=== PATIENT | female | born 1960 | race Caucasian/White ===

== ENCOUNTER 2024-10-28 07:34 | Emergency (ER) | payer MEDICARE, SELFPAY ==
[2024-10-28 07:36] VITALS: BP 156/81
[2024-10-28 07:59] LABS: % Basophils 0.3 % (0-2); % Eosinophils 0.8 % (0-6); % Immature Granulocytes 0.2 % (0-0.5); % Lymphocytes 17.8 % (20.5-51.1); % Monocytes 10.4 % (1.7-9.3); % Neutrophils 70.5 % (42.2-75.2); Absolute Eosinophils 0.1 10^3/uL (0-0.7); Absolute Lymphocytes 1.5 10^3/uL (1.2-3.4); Absolute Monocytes 0.9 10^3/uL (0.1-0.6); Absolute Neutrophils 6.1 10^3/uL (1.4-6.5); Hematocrit 39.1 % (37.0-47.0); Hemoglobin 12.6 g/dL (12.0-16.0); Mean Corp Hgb Conc. 32.2 g/dL (33.0-37.0); Mean Corpuscular Hgb 26.5 pg (27.0-31.0); Mean Corpuscular Volume 82.1 fL (81.0-99.0); Mean Platelet Volume 9.5 fL (7.4-10.4); Nucleated Red Blood Cells % 0 %; Platelet Count 273 10^3/uL (130-400); Red Blood Cell Count 4.76 10^6/uL (4.20-5.40); Red Cell Dist. Width 16.1 % (11.5-14.5); White Blood Cell Count 8.6 10^3/uL (4.8-10.8)
[2024-10-28 08:12] LABS: ALT (SGPT) 23 U/L (0-35); AST (SGOT) 21 U/L (14-36); Albumin 4.7 g/dl (3.5-5.0); Alkaline Phosphatase 76 U/L (38-126); Blood Urea Nitrogen 11 mg/dl (7-17); Calcium 9.6 mg/dl (8.4-10.2); Carbon Dioxide 26 mmol/L (22-30); Chloride 99 mmol/L (98-107); Glucose 174 mg/dl (70-99); Potassium 4.3 mmol/L (3.5-5.1); Sodium 138 mmol/L (135-145); Total Bilirubin 0.5 mg/dl (0.2-1.3); Total Protein 7.2 g/dl (6.3-8.2); eGFR > 60.00
[2024-10-28 08:16] LABS: COVID-19 Antigen Negative (Negative)
[2024-10-28 08:59] VITALS: BP 125/73
[2024-10-28 09:02] VITALS: BMI 29.5
--- NOTE | 2024-10-28 10:07 | ED.GENMED ---
History of Present Illness
General
Chief Complaint: Cold/Flu/URI Symptoms
Source: patient and spouse
Exam Limitations: none
Time Seen by Provider: 10/28/24 09:02
Nursing documentation reviewed up to this point in time: agreed with
History of Present Illness
History of Present Illness:
64 yo female w h/o NIDDM, HLD, neuropathy feet, UTIs, Hypothyroid, GERD, atypical PNA this time last year. Presents for 'bad cough.' Cough started a week ago, 2 days ago 'it moved down to my lungs,' cough became much worse yesterday. Lockhart wheezing
in right lung today and took her Albuterol inhaler and Flovent with relief. Denies fever, denies n/v/d/c. Appetite good. Feels fatigued.
Frequent UTI's, had Fosfomycin 10/14, developed yeast infection and is taking Nystatin and Fluconazole 1 q 3 days x 3 doses starting 2 days ago.
Past History
Past History
ED Past Medical History: Asthma, GERD, Hypercholesterolemia, NIDDM and Hypothyroidism
Review of Systems
Review of Systems
Allergies reviewed?: Yes
All Other Systems: ROS reviewed and negative except as documented in HPI and ROS
Constitutional: Denies fever or chills
EENT: Denies sore throat
Respiratory: Reports cough
Cardiac: Reports chest pain and diaphoresis; Denies palpitations
ABD/GI: Denies abdominal pain, nausea, vomiting or diarrhea
: Denies dysuria, frequency, difficulty voiding or urgency
Musculoskeletal: Reports no symptoms
Skin: Reports no symptoms
Neurological: Reports no symptoms
Phy Exam
Physical Exam
Physical Exam:
GENERAL: No acute distress. A&Ox3.
CONSTITUTIONAL: Afebrile.
EYES: clear, conjunctivae normal
ENMT: moist mucus membranes, Pharynx nl, TMs normal
RESPIRATORY: Regular respirations, nonlabored, lungs clear.
CARDIOVASCULAR: Regular rate and rhythm, no murmurs, no rubs.
GI: Soft, nontender
MUSCULOSKELETAL: Moves with ease. Well perfused.
SKIN: Warm, dry, pink
PSYCH: Normal mood and affect. Well kept, interactive and appropriate
NEUROLOGIC: Awake, alert and oriented. No focal neurological deficits
Course
Orders/Labs/Results
Orders:
Orders
10/28/24 07:40
Chest [CR Chest - 2 Views ] Urgent
Comment:
Reason For Exam: SOB, cough, wheezing
10/28/24 07:48
COVID-19 Antigen Urgent
Source: Nasal Swab
Complete Blood Count/With Diff Urgent
Comprehensive Metabolic Panel Urgent
Influenza A+B Rapid Molecular Urgent
JORDANA Source: Nasal Swab
Specimen Description:
Abnormal Lab Results
10/28/24
07:48
MCH 26.5 L pg
(27.0-31.0)
MCHC 32.2 L g/dL
(33.0-37.0)
RDW 16.1 H %
(11.5-14.5)
Absolute Monos (auto) 0.9 H 10^3/uL
(0.1-0.6)
Lymphocytes % 17.8 L %
(20.5-51.1)
Monocytes % 10.4 H %
(1.7-9.3)
Glucose 174 H mg/dl
(70-99)
10/28/24 07:48
10/28/24 07:48
Vital Signs
Initial and Last Documented VS:
Initial Vital Signs
Temp Pulse Resp BP Pulse Ox
99.2 F 122 18 156/81 97
10/28/24 07:36 10/28/24 07:36 10/28/24 07:36 10/28/24 07:36 10/28/24 07:36
Last Documented Vital Signs
Temp Pulse Resp BP Pulse Ox
99.2 F 93 23 115/75 91
10/28/24 07:36 10/28/24 11:15 10/28/24 11:15 10/28/24 11:00 10/28/24 11:15
MDM/Problems Addressed
MDM/Problems Addressed:
64 yo female w h/o NIDDM, HLD, neuropathy feet, UTIs, Hypothyroid, GERD, atypical PNA this time last year. Presents for 'bad cough.' Cough started a week ago, 2 days ago 'it moved down to my lungs,' cough became much worse yesterday. Lockhart wheezing
in right lung today and took her Albuterol inhaler and Flovent with relief. Denies fever, denies n/v/d/c. Appetite good. Feels fatigued.
Frequent UTI's, had Fosfomycin 10/14, developed yeast infection and is taking Nystatin and Fluconazole 1 q 3 days x 3 doses starting 2 days ago.
Temp 99.2, NAD
Lungs CTA
CBC, CMP unremarkable.
Covid neg
Flu negative
CXR: NAD
I will treat for atypical pneumonia with doxycycline
Pt stable for discharge
*Critical Care Note
Total Time (30-74mins, 75-104mins- exclusive of procedures): Not Applicable
ED Attending Note
-
Portions of this chart may have been created with voice recognition software.� Occasional wrong word or��sound alike� substitutions may have occurred due to the inherent limitations of voice recognition software.
Discharge Plan
Departure
Patient Disposition: Home (Routine Discharge)
Date of Disposition: 10/28/24
Time of Disposition: 11:01
Patient with high blood pressure during this ER visit?: No
Condition: Good
Covid-19: Negative COVID-19
Discharge Problem:
Atypical pneumonia
Instructions: Bronchitis in adults - ED discharge instructions, Pneumonia
Prescriptions:
New
doxycycline hyclate 100 mg tablet
100 mg PO BID Qty: 20 0RF
benzonatate 100 mg capsule
100 mg PO Q4H PRN (Reason: Cough) Qty: 14 0RF
No Action
metformin 500 mg Tablet
1,000 mg PO BID@0800,1700
dextromethorphan-guaifenesin 10-100 mg/5 mL Liquid
10 ml PO Q4H PRN (Reason: cough)
folic acid 400 mcg Tablet
0.4 mg PO MOWEFR
acetaminophen [Tylenol Extra Strength] 500 mg Tablet
500 mg PO BIDPRN PRN (Reason: mild pain)
famotidine [Pepcid] 20 mg Tablet
20 mg PO HS
ascorbic acid (vitamin C) [Vitamin C] 500 mg Tablet
500 mg PO DAILY
losartan 25 mg Tablet
25 mg PO HS
ibuprofen 400 mg Tablet
400 mg PO BIDPRN PRN (Reason: mild pain)
magnesium 250 mg Tablet
250 mg PO DAILY
gabapentin 100 mg Capsule
100 mg PO HS
fluticasone propionate 50 mcg/actuation [place],Suspension
2 spray INTRANASAL DAILY
levothyroxine 112 mcg Tablet
112 mcg PO DAILY AT 0700
rosuvastatin 20 mg Tablet
20 mg PO HS
Align (B.infantis) 4 mg Capsule
4 mg PO DAILY
dexlansoprazole 60 mg Capsule,Biphase Delayed Releas
60 mg PO DAILY
cholecalciferol (vitamin D3) 125 mcg (5,000 unit) Tablet
125 mcg PO DAILY
estradiol [Yuvafem] 10 mcg Tablet
10 mcg VAGINAL MOWEFR
L.acid-L.rham-B.breve-S.therm 3 billion cell Tablet,Chewable
3 tab PO .SEE BELOW
Patient Comments:
10/04/2023, patient states that they take this medication 'whenever I remember to'.
albuterol sulfate 0.63 mg/3 mL Solution For Nebulization
0.63 mg INHALATION R Q3
methocarbamol 750 mg Tablet
750 mg PO DAILYPRN PRN (Reason: muscle pain)
benzonatate 100 mg Capsule
100 mg PO QID
pseudoephedrine HCl [Sudafed] 30 mg Tablet
30 mg PO TIDPRN PRN (Reason: sinus congestion)
doxycycline hyclate 100 mg Capsule
100 mg PO Q12@1000,2200 2 Days Qty: 4 0RF
cefdinir 300 mg capsule
300 mg PO Q12H Qty: 4 0RF
prednisone 10 mg Tablet
See Rx Instructions .ROUTE .COMPLEX Qty: 30 0RF
Rx Instructions:
Take By Mouth:
40 mg daily x3 days, 30 mg daily x3 days,
20 mg daily x3 days, 10 mg daily x3 days.
budesonide-formoterol [Breyna] 160-4.5 mcg/actuation HFA aerosol inhaler
2 puff inhalation BID Qty: 10.2 0RF
Referrals:
Cynthia Corbin CRNP [Family Provider] -
Activity Restrictions/Additional Instructions:
As we discussed, your symptoms are most consistent with either an atypical pneumonia or bronchitis. Either way they can both be treated with doxycycline. I sent a prescription for doxycycline and Tessalon Perles for your cough to your pharmacy,
pick them up and start today.
See your doctor in 1 week if not much improved by then.
Interventions
Interventions:
*Risk Screen - Suicide Last Done: 10/28/24 07:36
*General Assessment Last Done: 10/28/24 07:36
*Neglect/Abuse Screening Last Done: 10/28/24 07:36
*ED COVID-19 Vaccine History Last Done: 10/28/24 07:36
*Nursing Disposition Last Done: 10/28/24 11:34
ED- Pulmonary Assessment Last Done: 10/28/24 08:59
Discharge Date and Time
Discharge Date/Time: 10/28/24 12:03
Print Language: YAKUT
[2024-10-28 10:10] VITALS: BP 124/85
[2024-10-28 11:00] VITALS: BP 115/75
== END 2024-10-28 12:03 | disposition home or self-care (01) ==
LOC: EMR 07:34
PROVIDERS: Emergency Medicine; EMERGENCY PHYSICIAN Emergency Medicine; FAMILY PHYSICIAN Registered Nurse
DX: J18.9 Pneumonia, unspecified organism (principal); E11.9 Type 2 diabetes mellitus without complications; E78.00 Pure hypercholesterolemia, unspecified; E03.9 Hypothyroidism, unspecified; J45.909 Unspecified asthma, uncomplicated; K21.9 Gastro-esophageal reflux disease without esophagitis; Z87.440 Personal history of urinary (tract) infections
CPT/HCPCS: 99283; 71046; 80053; 85025; 87502; 87811

== ENCOUNTER 2024-12-05 06:34 | Day surgery (SDC) | payer MEDICARE, SELFPAY ==
[2024-12-05 07:53] LABS: Glucose - Point of Care 148 mg/dl (70-99)
== END 2024-12-05 09:54 | disposition home or self-care (01) ==
LOC: GI 06:34
PROVIDERS: ATTENDING PHYSICIAN Student in an Organized Health Care Education/Training Program
DX: K29.50 Unspecified chronic gastritis without bleeding (principal); K31.7 Polyp of stomach and duodenum; K21.9 Gastro-esophageal reflux disease without esophagitis; R13.14 Dysphagia, pharyngoesophageal phase
CPT/HCPCS: 43251; 88305; 82962; 88342

== ENCOUNTER → 2024-12-18 13:58 | Outpatient (REF) | payer MEDICARE, SELFPAY | LOC: HWRAD 13:58 | PROVIDERS: ATTENDING PHYSICIAN Internal Medicine Critical Care Medicine; FAMILY PHYSICIAN Registered Nurse | DX: R91.8 Other nonspecific abnormal finding of lung field (principal) | CPT/HCPCS: 71250 ==

== ENCOUNTER 2025-07-16 06:23 | Day surgery (SDC) | payer MEDICARE, SELFPAY ==
[2025-07-16 07:24] LABS: Glucose - Point of Care 114 mg/dl (70-99)
== END 2025-07-16 09:03 | disposition home or self-care (01) ==
LOC: GI 06:23
PROVIDERS: ATTENDING PHYSICIAN Student in an Organized Health Care Education/Training Program; FAMILY PHYSICIAN Registered Nurse
DX: Z12.11 Encounter for screening for malignant neoplasm of colon (principal); K57.30 Diverticulosis of large intestine without perforation or abscess without bleeding; K62.89 Other specified diseases of anus and rectum; K63.89 Other specified diseases of intestine; D12.3 Benign neoplasm of transverse colon; K63.5 Polyp of colon; D12.0 Benign neoplasm of cecum; Z86.0100 Personal history of colon polyps, unspecified
CPT/HCPCS: 45385; 45380; 82962; 88305

== ENCOUNTER 2025-09-03 06:07 | Day surgery (SDC) | payer MEDICARE, SELFPAY ==
[2025-09-03 07:45] VITALS: BP 109/73
[2025-09-03 07:52] LABS: Glucose - Point of Care 110 mg/dl (70-99)
[2025-09-03 07:56] VITALS: BMI 28.3
[2025-09-03 07:57] VITALS: BMI 28.3
[2025-09-03 09:52] VITALS: BP 95/44
[2025-09-03 10:02] VITALS: BP 125/72
[2025-09-03 10:18] VITALS: BP 133/89
[2025-09-03 10:21] VITALS: BP 138/81
[2025-09-03] MEDS: TYLENOL 650 MG PO (10:23)
== END 2025-09-03 10:44 | disposition home or self-care (01) ==
LOC: SDS 06:07
PROVIDERS: ATTENDING PHYSICIAN Internal Medicine Gastroenterology
DX: D12.0 Benign neoplasm of cecum (principal); D12.2 Benign neoplasm of ascending colon; K63.5 Polyp of colon; K57.30 Diverticulosis of large intestine without perforation or abscess without bleeding; K64.0 First degree hemorrhoids
CPT/HCPCS: 45390; 82962; 88305; C1726

== ENCOUNTER 2025-09-06 01:09 | Observation (INO) | payer MEDICARE, SELFPAY ==
[2025-09-05 18:15] VITALS: BP 163/93
[2025-09-05 18:50] LABS: Hematocrit 39.4 % (37.0-47.0); Hemoglobin 12.3 g/dL (12.0-16.0); Mean Corp Hgb Conc. 31.2 g/dL (33.0-37.0); Mean Corpuscular Volume 76.8 fL (81.0-99.0); Nucleated Red Blood Cells % 0 %; Platelet Count 359 10^3/uL (130-400); Red Cell Dist. Width 17.1 % (11.5-14.5)
[2025-09-05 19:04] LABS: ALT (SGPT) 23 U/L (0-35); AST (SGOT) 20 U/L (14-36); Albumin 4.7 g/dl (3.5-5.0); Alkaline Phosphatase 73 U/L (38-126); Blood Urea Nitrogen 14 mg/dl (7-17); Calcium 10.4 mg/dl (8.4-10.2); Carbon Dioxide 29 mmol/L (22-30); Chloride 100 mmol/L (98-107); Glucose 113 mg/dl (70-99); Lipase 119 U/L (23-300); Potassium 4.5 mmol/L (3.5-5.1); Sodium 136 mmol/L (135-145); Total Protein 7.7 g/dl (6.3-8.2); eGFR > 60.00
[2025-09-05 21:07] VITALS: BP 124/55
--- NOTE | 2025-09-05 21:08 | ED.GENMED ---
History of Present Illness
General
Chief Complaint: Abdominal Pain
Source: patient
Exam Limitations: none
Time Seen by Provider: 09/05/25 20:44
History of Present Illness
History of Present Illness:
65-year-old female presents with worsening right sided abdominal pain. She had colonoscopy with polypectomy x 5 3 days ago. She has had pain in the right side of her abdomen since that seems to be worse. She has been moving her bowels today she
noted some looser stool. She denies fevers. No other complaints at this time
Past History
Past History
ED Past Medical History: Asthma, GERD, Hypercholesterolemia, NIDDM and Hypothyroidism
Phy Exam
Physical Exam
Physical Exam:
General: Well-appearing female no acute respiratory distress
HEENT: Normal cephalic atraumatic heart: Regular rate and rhythm no murmurs
Lungs: Clear no wheeze
Abdomen soft but tender to the right mid and lower abdomen mild guarding nondistended
Extremities: No cyanosis skin is warm no rash
Course
Orders/Labs/Results
Orders:
Orders
09/05/25 18:25
Complete Blood Count/With Diff Urgent
Comprehensive Metabolic Panel Urgent
Lipase Urgent
09/05/25 20:55
CT Abd/pelvis W Iv Cont Urgent
Comment:
Reason For Exam: abdominal pain, recent polypectomies
09/05/25 22:29
0.9% Sodium Chloride 1000 ml [Nss] 1,000 ml IV BOLUS
Abnormal Lab Results
09/05/25
18:25
MCV 76.8 L fL
(81.0-99.0)
MCH 24.0 L pg
(27.0-31.0)
MCHC 31.2 L g/dL
(33.0-37.0)
RDW 17.1 H %
(11.5-14.5)
Absolute Monos (auto) 0.8 H 10^3/uL
(0.1-0.6)
Glucose 113 H mg/dl
(70-99)
Calcium 10.4 H mg/dl
(8.4-10.2)
09/05/25 18:25
09/05/25 18:25
Vital Signs
Initial and Last Documented VS:
Initial Vital Signs
Temp Pulse Resp BP Pulse Ox
98.4 F 114 18 163/93 99
09/05/25 18:15 09/05/25 18:15 09/05/25 18:15 09/05/25 18:15 09/05/25 18:15
Last Documented Vital Signs
Temp Pulse Resp BP Pulse Ox
98.4 F 92 16 124/55 95
09/05/25 21:07 09/05/25 21:07 09/05/25 21:07 09/05/25 21:07 09/05/25 21:11
MDM/Problems Addressed
Differential Diagnosis Includes:
Patient with abdominal pain following colonoscopy. Consider irritation from bowel prep versus perforation versus diverticulitis
Labs ordered and reviewed and are normal. Will obtain CT scan. Offered pain medicine however she declined at this time
*Pulse Oximetry
SaO2: 95
Oxygen Mode of Delivery: Room air
Patient hypoxic: no
*Critical Care Note
Total Time (30-74mins, 75-104mins- exclusive of procedures): Not Applicable
Update Note
Update Note:
CT demonstrates inflammation of the colon wall and cecum of the ascending colon to suggest postpolypectomy syndrome. GI made aware who recommended admission and Cipro and Flagyl. Hospitalist made aware
ED Attending Note
-
Portions of this chart may have been created with voice recognition software.� Occasional wrong word or��sound alike� substitutions may have occurred due to the inherent limitations of voice recognition software.
Discharge Plan
Departure
Patient Disposition: Admit
Date of Disposition: 09/05/25
Time of Disposition: 23:17
Presentation/result/management discussed w/ accepting MD/DO: Hospitalist
Discharge Problem:
Abdominal pain
Prescriptions:
No Action
metformin 500 mg Tablet
1,000 mg PO BID@0800,1700
dextromethorphan-guaifenesin 10-100 mg/5 mL Liquid
10 ml PO Q4H PRN (Reason: cough)
folic acid 400 mcg Tablet
0.4 mg PO MOWEFR
acetaminophen [Tylenol Extra Strength] 500 mg Tablet
500 mg PO BIDPRN PRN (Reason: mild pain)
famotidine [Pepcid] 20 mg Tablet
20 mg PO HS
ascorbic acid (vitamin C) [Vitamin C] 500 mg Tablet
500 mg PO DAILY
losartan 25 mg Tablet
25 mg PO HS
magnesium 250 mg Tablet
250 mg PO DAILY
gabapentin 100 mg Capsule
100 mg PO HS
fluticasone propionate 50 mcg/actuation [place],Suspension
2 spray INTRANASAL DAILY
levothyroxine 112 mcg Tablet
112 mcg PO DAILY AT 0700
rosuvastatin 20 mg Tablet
40 mg PO HS
Align (B.infantis) 4 mg Capsule
4 mg PO DAILY
dexlansoprazole 60 mg Capsule,Biphase Delayed Releas
60 mg PO DAILY
cholecalciferol (vitamin D3) 125 mcg (5,000 unit) Tablet
125 mcg PO DAILY
estradiol [Yuvafem] 10 mcg Tablet
10 mcg VAGINAL MOWEFR
albuterol sulfate 0.63 mg/3 mL Solution For Nebulization
0.63 mg INHALATION R Q3
methocarbamol 750 mg Tablet
750 mg PO DAILYPRN PRN (Reason: muscle pain)
pseudoephedrine HCl [Sudafed] 30 mg Tablet
30 mg PO TIDPRN PRN (Reason: sinus congestion)
budesonide-formoterol [Breyna] 160-4.5 mcg/actuation HFA aerosol inhaler
2 puff inhalation BID Qty: 10.2 0RF
benzonatate 100 mg capsule
100 mg PO Q4H PRN (Reason: Cough) Qty: 14 0RF
d-mannose 500 mg Capsule
2,000 mg PO DAILY
Utiva Cranberry
1 tab PO DAILY
albuterol sulfate [ProAir HFA] 90 mcg/actuation Hfa Aerosol Inhaler
2 puff INHALATION QID PRN (Reason: shortness of breath)
Referrals:
Cynthia Corbin CRNP [Family Provider, Family Practice]
Interventions
Interventions:
*Risk Screen - Suicide Last Done: 09/05/25 18:15
*General Assessment Last Done: 09/05/25 18:15
*Neglect/Abuse Screening Last Done: 09/05/25 18:15
*ED- Fall Risk Assessment Last Done: 09/05/25 21:06
*ED COVID-19 Vaccine History Last Done: 09/05/25 21:06
*ED Influenza Vaccine History Last Done: 09/05/25 21:06
FG-Sfqoci-Jynopwrxnb Assessment Last Done: 09/05/25 21:06
Discharge Date and Time
Print Language: KOREAN
[2025-09-05] MEDS: NSS 1000 IV (22:39)
[2025-09-05] MEDS: BENTYL 10 MG PO (23:22)
[2025-09-05] MEDS: FLAGYL 500 MG PO (23:22)
[2025-09-05] MEDS: CIPRO 500 MG PO (23:22)
[2025-09-05 23:25] VITALS: BP 109/87
--- NOTE | 2025-09-06 00:22 | HPS.HSE ---
Family Physician
-
Family Physician: Cynthia Corbin
Chief Complaint
-
Abdominal pain
History of Present Illness
65-year-old female who with past medical history significant for hypothyroidism, diabetes, asthma, GERD, ANTIONETTE on CPAP presents to the emergency department with abdominal pain.
Patient had a colonoscopy about 3 days ago with removal of multiple polyps in the cecum and placement of clips. She complains of right-sided abdominal pain. She has had bowel movements but noticed some looser stools today but no diarrhea. She has
no fevers nausea vomiting.
In the emergency department she was afebrile, blood pressure was 109/87 with a pulse rate of 50 and she was satting 90% on room air. CBC was unremarked. Electrolytes BUN and creatinine were all in normal range. CT of the abdomen and pelvis
showing endoluminal biopsy clips in the stomach, cecum, and proximal ascending colon. Mild wall thickening in the cecum and proximal ascending colonic wall consistent with inflammation at the site of recent biopsies and mild to moderate colonic
diverticulosis.
Medical History
Past Medical History
Past Medical History: Reports Other
Additional Past Medical History:
Hypothyroidism
Diabetes mellitus
Peripheral neuropathy secondary to diabetes
Pulmonary nodules
Asthma
GERD
Renal lesion
ANTIONETTE on CPAP
Past Surgical History: Reports Other
Additional Past Surgical History:
Breast lumpectomy
Left knee replacement
Bladder sling
Complete hysterectomy
Cervical spinal fusion
Lumbar decompression
Social History
Tobacco: Non-smoker
Alcohol: Occasional
Personal:
Living: With Family
Family History
Family History: Not pertinent
Allergies / Home Medications
Allergies reflects when Allergies were last updated in [facility].
Home Medications with original date entered in [facility] [facility]
Allergy/Medication List:
Medications on admission are unable to be verified or confirmed at this time.
Review of Systems
-
Constitutional: Reports No Symptoms
EENT: Reports No Symptoms
Respiratory: Reports No Symptoms
Cardiac: Reports No Symptoms
Abdomen/GI: Reports Abdominal Pain
: Reports No Symptoms
Musculoskeletal: Reports No Symptoms
Skin: Reports No Symptoms
Neurological: Reports No Symptoms
Endocrine: Reports No Symptoms
Hematologic/Lymphatic: Reports No Symptoms
Psych: Reports No Symptoms
Physical Exam
Vital Signs
Vital Signs
Temp Pulse Resp BP Pulse Ox
98.4 F 80 16 109/87 97
09/05/25 23:25 09/05/25 23:25 09/05/25 23:25 09/05/25 23:25 09/05/25 23:25
Physical Exam
General: Well Developed, Well Nourished and No Apparent Distress
HEENT: NormoCephalic, Moist mucous membranes and Atraumatic
Respiratory: Rales
Cardiac: S1/S2 and Regular Rhythm; No Murmur or Rub
GI: Soft, Non Tender, Non Distended and Normal Bowel Sounds; No Organomegaly
Rectal: Deferred by Provider
Musculoskeletal: No Clubbing, No Cyanosis and No Edema
Skin: No Rash
Neuro: Awake, Oriented, AO x 3 and Nonfocal/grossly intact
Psych: Calm
Laboratory Results
-
09/05/25 18:25
09/05/25 18:25
Laboratory Results
Total Bilirubin 0.5 mg/dl (0.2-1.3) 09/05/25 18:25
AST 20 U/L (14-36) 09/05/25 18:25
ALT 23 U/L (0-35) 09/05/25 18:25
Alkaline Phosphatase 73 U/L (38-126) 09/05/25 18:25
Lipase 119 U/L (23-300) 09/05/25 18:25
Data Reviewed
-
CT Scan: Report Reviewed by me
Lab Data: Labs Reviewed by me
Old Records: Reviewed
Impression/Plan
-
IMPRESSION:
65-year-old who is. The #3 status post colonoscopy with multiple cecal polyp resection accompanied with abdominal pain. Labs unremarkable. No urinary symptoms. CT abdomen pelvis shows some inflammation at the site of the polyp resection. Case
discussed with gastroenterology who raise concern for post polypectomy syndrome. Antibiotic recommended.
PLAN:
Abdominal pain -post polypectomy syndrome. No GI bleed.
� Admit to MedSurg observation
� IV Cipro and Flagyl
� Clear liquid diet for now
� Trend H&H
-Pain control and antiemetics
Diabetes mellitus -
- Hold metformin
� Sliding scale insulin
Asthma�stable
- Continue home nebs
- continue cpap hs
DVT prophylaxis�Lovenox subcu
CODE STATUS�full code
[2025-09-06 01:47] VITALS: BP 129/80; BMI 28.3
[2025-09-06] MEDS: LR 1000 IV ×2 (02:25→11:39)
[2025-09-06 02:39] LABS: Glucose - Point of Care 114 mg/dl (70-99)
[2025-09-06 04:09] LABS: Hematocrit 34.6 % (37.0-47.0); Hemoglobin 10.7 g/dL (12.0-16.0)
--- NOTE | 2025-09-06 04:47 | PTCARENOTE ---
Pt arrived to unit from ED on stretcher at 0140. Pt ambulated to bed without assist-erect posture. Pt denies pain at this time, but does endorse some discomfort with ambulation. IVF maintained-LR@100ml/hr. Serial H&H. Denies current sx of
lightheadedness, SOB or dizziness. No BM since arrival to floor. VSS. Bed in lowest position and locked, call fierro within reach, pt has no further concerns at this time.
[2025-09-06] MEDS: SYNTHROID 112 MCG PO (05:57)
[2025-09-06 06:27] LABS: Hematocrit 32.8 % (37.0-47.0); Hemoglobin 10.6 g/dL (12.0-16.0); Mean Corp Hgb Conc. 32.3 g/dL (33.0-37.0); Mean Corpuscular Volume 77.5 fL (81.0-99.0); Platelet Count 268 10^3/uL (130-400); Red Cell Dist. Width 16.7 % (11.5-14.5)
[2025-09-06 06:45] LABS: Blood Urea Nitrogen 11 mg/dl (7-17); Calcium 8.9 mg/dl (8.4-10.2); Carbon Dioxide 28 mmol/L (22-30); Chloride 106 mmol/L (98-107); Estimated Creatinine Clearance 80 ml/min; Glucose 98 mg/dl (70-99); Potassium 4.0 mmol/L (3.5-5.1); Sodium 140 mmol/L (135-145); eGFR > 60.00
[2025-09-06] MEDS: SYMBICORT 160/4.5 MCG INHALER 2 PUFF INH (07:39)
[2025-09-06 08:13] VITALS: BP 110/73
[2025-09-06 08:22] LABS: Glucose - Point of Care 104 mg/dl (70-99)
[2025-09-06 09:01] LABS: Hepatitis C Antibody Negative (Negative)
[2025-09-06] MEDS: MAGNESIUM OXIDE 200 MG PO (09:11)
[2025-09-06] MEDS: PROTONIX 40 MG PO (09:11)
--- NOTE | 2025-09-06 11:15 | W.PN.HOSP.TC ---
Today's Communication/Plan
-
Clear liquid diet. Antibiotics and IV fluids.
Assessment / Plan
Assessment / Plan
Physical exam:
General: Well Developed, Well Nourished and No Apparent Distress
HEENT: Normocephalic, Atraumatic and Moist Mucous Membranes
Respiratory: Clear to Auscultation; Negative Wheezes, Rales or Rhonchi
Cardiac: Regular Rhythm and S1/S2
GI: Soft, tender right upper quadrant and Nondistended
Musculoskeletal: No Clubbing, No Cyanosis and No Edema
Neuro: Awake, Alert and Oriented, no neurological deficit
Psych: Calm
A/P:
Postpolypectomy syndrome:
IV fluid
IV antibiotics, restart Cipro and Flagyl
Continue clear liquid diet
Pain control
Discussed with GI in person and consult placed
Acute blood loss anemia:
Continue monitor hemoglobin
Hypertension:
Continue antihypertensive
Hyperlipidemia:
Continue statin
Diabetes mellitus:
Insulin sliding scale
Asthma:
Bronchodilators as needed
Hypothyroidism:
Continue thyroid replacement
GERD:
Continue PPI and H2 shaquille
DVT prophylaxis:
Lovenox SQ-might consider hold if continue to drop
CODE STATUS:
Full code
Anticipated Discharge: 24 - 48 hours
Subjective/Interval History
-
Date of Service: September 06, 2025
Patient states overall feels better but still having some abdominal discomfort on right upper quadrant. No vomiting. Less nausea. Afebrile
Objective Data
-
Labs:
Laboratory Results
09/06/25 09/06/25 09/06/25
03:38 05:41 11:40
WBC 6.3
Hgb 10.7 L 10.6 L Cancelled
Hct 34.6 L 32.8 L Cancelled
Plt Count 268 D
Sodium 140
Potassium 4.0
Chloride 106
Carbon Dioxide 28
BUN 11
Creatinine 0.7
Glucose 98
Calcium 8.9 D
09/06/25 09/06/25
17:40 23:40
WBC
Hgb Cancelled Cancelled
Hct Cancelled Cancelled
Plt Count
Sodium
Potassium
Chloride
Carbon Dioxide
BUN
Creatinine
Glucose
Calcium
Vital Signs:
Vital Signs
Temp Pulse Resp BP Pulse Ox
98.1 F 85 18 110/73 98
09/06/25 08:13 09/06/25 08:13 09/06/25 08:13 09/06/25 08:13 09/06/25 09:45
I&O
09/05/25 09/06/25 09/07/25
06:59 06:59 06:59
Intake Total 310 / 310
Balance 310 / 310
[2025-09-06] MEDS: CIPRO 400 MG 200 IV (12:03)
--- NOTE | 2025-09-06 12:19 | CM ---
CM following re: discharge planning.
Reviewed pt's chart, met with pt.
Pt is a 65 year old female, admitted with OBS status and primary dx of Abdominal pain -post polypectomy syndrome. OBS status reviewed with the pt, [facility] letter signed, placed on chart, pt has a copy.
Pt reports she lives with 1 SH, no steps, has 2 supportive children. Pt described herself as independent in all areas [employer]. No DME, VN or SNF history
D/C plan: home no needs. to transport at discharge.
CM will follow with discharge plan updates as needed.
--- NOTE | 2025-09-06 12:30 | CON.GI ---
Consultation
-
Date/Time Consultation Requested: 09/06/2025
Date/Time Consultation Performed: 09/06/2025
Performing Provider: Juan Ng
Reason for Consultation: abdominal pain
Medical History
Chief Complaint / HPI
Chief Complaint: abdominal pain
History of Present Illness:
Patient is a 65 year old female with h/o hypothyroidism, DM, asthma, GERD, and ANTIONETTE on CPAP who p/w abdominal pain after recent colonoscopy w/ EMR. She had colonoscopy w/ EMR on 09/03 and developed abdominal pain about 2 days after. Her pain is
right-sided, felt sharp pain. It gradually worsened and was severe on the day of admission. She denies fever, nausea/vomiting, or GI bleed with melena/rectal bleeding.
Past Medical History
Past Medical History: Asthma, GERD, Hypothyroidism, NIDDM and Other
Past Surgical History: Other
Social History
Tobacco: Non-Smoker
Alcohol: Occasional
Drug: None
Family History
Family History: Reviewed & Not Pertinent
Allergies / Home Medications
Allergy/AdvReac Type Severity Reaction Status Date / Time
azithromycin Allergy Nausea / Verified 09/05/25 18:15
Vomiting
erythromycin base Allergy Severe abd Verified 09/05/25 18:15
pain
fluticasone (From Advair Allergy Powder Verified 09/05/25 18:15
Diskus) version.
No
problems
with
albuterol
fluticasone furoate (From Allergy Pharmacy Verified 09/05/25 18:15
Trelegy Ellipta) to Review
Gadolinium-Containing Allergy Unknown Verified 09/05/25 18:15
Contrast Medi
nitrofurantoin Allergy Nausea Verified 09/05/25 18:15
omeprazole Allergy PVCs Verified 09/05/25 18:15
salmeterol (From Advair Allergy Powder Verified 09/05/25 18:15
Diskus) version.
No
problems
with
albuterol
simvastatin Allergy Muscle pain Verified 09/05/25 18:15
sulfamethoxazole (From Allergy Rash Verified 09/05/25 18:15
Bactrim)
tizanidine Allergy Shortness Verified 09/05/25 18:15
of Breath
trimethoprim (From Bactrim) Allergy Rash Verified 09/05/25 18:15
umeclidinium (From [facility] Verified 09/05/25 18:15
Ellipta) to Review
vilanterol (From [facility] Verified 09/05/25 18:15
Ellipta) to Review
�Medication �Instructions �Recorded
Bifidobacterium infantis 4 mg 4 mg PO DAILY probiotic 10/04/23
capsule (Align (B.infantis))
acetaminophen 500 mg tablet 500 mg PO BIDPRN PRN mild pain 10/04/23
(Tylenol Extra Strength)
albuterol sulfate 0.63 mg/3 mL 0.63 mg inhalation R Q3 asthma 10/04/23
solution for nebulization
ascorbic acid (vitamin C) 500 mg 500 mg PO DAILY Supplement 10/04/23
tablet (Vitamin C)
cholecalciferol (vitamin D3) 125 125 mcg PO DAILY Supplement 10/04/23
mcg (5,000 unit) tablet
dexlansoprazole 60 mg 60 mg PO DAILY reflux 10/04/23
capsule,biphase delayed release
dextromethorphan-guaifenesin 10 10 ml PO Q4H PRN cough 10/04/23
mg-100 mg/5 mL oral liquid
estradiol 10 mcg vaginal tablet 10 mcg vaginal MOWEFR Hormonal 10/04/23
(Yuvafem) Agent
famotidine 20 mg tablet (Pepcid) 20 mg PO HS Gastrointestinal Issue 10/04/23
fluticasone propionate 50 2 spray intranasal DAILY Allergies 10/04/23
mcg/actuation nasal
spray,suspension
folic acid 400 mcg tablet 0.4 mg PO MOWEFR Supplement 10/04/23
gabapentin 100 mg capsule 100 mg PO HS Neurological Condition 10/04/23
levothyroxine 112 mcg tablet 112 mcg PO DAILY AT 0700 Thyroid 10/04/23
losartan 25 mg tablet 25 mg PO HS Blood Pressure 10/04/23
magnesium 250 mg tablet 250 mg PO DAILY Electrolyte 10/04/23
Repletion
metformin 500 mg tablet 1,000 mg PO BID@0800,1700 Diabetes 10/04/23
methocarbamol 750 mg tablet 750 mg PO DAILYPRN PRN muscle pain 10/04/23
pseudoephedrine HCl 30 mg tablet 30 mg PO TIDPRN PRN sinus 10/04/23
(Sudafed) congestion
rosuvastatin 20 mg tablet 40 mg PO HS High Cholesterol 10/04/23
budesonide-formoterol HFA 160 2 puff inhalation BID #10.2 grams 10/07/23
mcg-4.5 mcg/actuation aerosol
inhaler (Breyna)
benzonatate 100 mg capsule 100 mg PO Q4H PRN Cough #14 caps 10/28/24
Utiva Cranberry 1 tab PO DAILY 09/03/25
albuterol sulfate 90 mcg/actuation 2 puff inhalation QID PRN 09/03/25
aerosol inhaler shortness of breath
d-mannose 500 mg capsule 2,000 mg PO DAILY 09/03/25
Review of Systems
Vital Signs
Temp Pulse Resp BP Pulse Ox
98.1 F 85 18 110/73 98
09/06/25 08:13 09/06/25 08:13 09/06/25 08:13 09/06/25 08:13 09/06/25 09:45
Physical Exam
Exam
General: Well Developed, Well Nourished and No Apparent Distress
HEENT: Normocephalic and Anicteric
Respiratory: Clear
Cardiac: S1/S2
GI: Soft, Non Distended, Normal Bowel Sounds and Tender (mildly tender to palpation in right side)
Results
WBC 6.3 10^3/uL (4.8-10.8) 09/06/25 05:41
Hgb Cancelled 09/06/25 23:40
Hct Cancelled 09/06/25 23:40
MCV 77.5 fL (81.0-99.0) L 09/06/25 05:41
Plt Count 268 10^3/uL (130-400) D 09/06/25 05:41
Absolute Neuts (auto) 5.6 10^3/uL (1.4-6.5) 09/05/25 18:25
Sodium 140 mmol/L (135-145) 09/06/25 05:41
Potassium 4.0 mmol/L (3.5-5.1) 09/06/25 05:41
Chloride 106 mmol/L (98-107) 09/06/25 05:41
Carbon Dioxide 28 mmol/L (22-30) 09/06/25 05:41
BUN 11 mg/dl (7-17) 09/06/25 05:41
Creatinine 0.7 mg/dL (0.6-1.0) 09/06/25 05:41
Calcium 8.9 mg/dl (8.4-10.2) D 09/06/25 05:41
Total Bilirubin 0.5 mg/dl (0.2-1.3) 09/05/25 18:25
AST 20 U/L (14-36) 09/05/25 18:25
ALT 23 U/L (0-35) 09/05/25 18:25
Alkaline Phosphatase 73 U/L (38-126) 09/05/25 18:25
Lipase 119 U/L (23-300) 09/05/25 18:25
Hepatitis C Antibody Negative (Negative) 09/06/25 05:41
Diagnostic Image Results:
Prior GI Procedures:
EGD:
Colonoscopy (09/03):
Impression:
- Hemorrhoids found on perianal exam.
- The examined portion of the ileum was normal.
- One 15 mm polyp in the cecum. Resected and retrieved. Treated
with argon plasma coagulation (APC). Clip was placed.
- Mucosal resection was performed. Resection was complete, and
retrieval was complete.
- One 13 mm polyp in the proximal ascending colon, removed with a
hot snare. Resected and retrieved.
- One 15 mm polyp in the ascending colon. Resected and retrieved.
Treated with argon plasma coagulation (APC). Clip was placed.
- Mucosal resection was performed. Resection was complete, and
retrieval was complete.
- One 12 mm polyp in the proximal transverse colon, removed with a
cold snare. Resected and retrieved.
- A tattoo was seen in the proximal transverse colon. The tattoo
site appeared normal.
- One 15 mm polyp in the mid transverse colon. Resected and
retrieved. Treated with argon plasma coagulation (APC). Clip was
placed.
- Mucosal resection was performed. Resection was complete, and
retrieval was complete.
- Diverticulosis in the sigmoid colon, in the descending colon and
in the transverse colon.
- Internal non-bleeding hemorrhoids.
Assessment / Plan
-
Pt is a 65 year old female who p/w acute abdominal pain 2 days post colonoscopy with EMR.
Impression / Rec:
1. 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 She had some discomfort which gradually worsened and became severe on day [address] on admission showed mild wall thickening in the cecum/prox ascending colon where EMRs
were performed. No free air to suggest perforation. Afebrile and no leukocytosis. Her pain has been better since admission. Currently on prophylactic cipro/flagyl. Given her clinical improvement, can advance diet to low residue. If tolerates
w/o worsening pain, can d/c home. GI s/o, call with questions.
Total Time Spent with Patient (in minutes): 55
-
-
Thank you for consultation and allowing me to participate in the patient's care. Please call the vocational adviser GI physician during the after hours with any questions or concerns.
[2025-09-06 12:40] LABS: Glucose - Point of Care 136 mg/dl (70-99)
[2025-09-06] MEDS: FLAGYL 500 MG 100 IV (14:04)
[2025-09-06 15:24] VITALS: BP 123/65
[2025-09-06 16:43] LABS: Glucose - Point of Care 118 mg/dl (70-99)
--- NOTE | 2025-09-06 17:07 | W.DCSUMMARY ---
Discharge Summary
Discharge Data
Date of Admission: 09/06/25
Date of Discharge: 09/06/25
-
Pending Results: No
Hospital Course
Patient is 65 years old female with history of asthma, diabetes mellitus, hypothyroidism, GERD, ANTIONETTE on CPAP, came into the hospital after recent colonoscopy with abdominal pain. Patient had a CT scan that showed some inflammatory changes. GI
consulted. 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 She did improve and she was able to tolerate solid diet. She is ambulating well.
She will be discharged in relatively stable condition today.
Discharge Plan
-
Patient Disposition: Home (Routine Discharge)
Discharge Diagnosis/Procedures: Post-Polypectomy syndrome
Diet: Low Residue
Activity: As tolerated
Blood Work: Please PCP to order CBC, BMP within 1 week
Referrals:
Juan Ng MD [Active, Gastroenterology] - in three to four days
Cynthia Corbin CRNP [Family Provider, Family Practice] - in less than 1 week
Prescriptions:
New
ciprofloxacin HCl [Cipro] 500 mg tablet
500 mg PO BID 5 Days Qty: 10 0RF
metronidazole 500 mg tablet
500 mg PO Q8H 5 Days Qty: 15 0RF
dicyclomine 10 mg capsule
10 mg PO TID PRN (Reason: abdominal pain) Qty: 14 0RF
Continued
metformin 500 mg Tablet
1,000 mg PO BID@0800,1700
dextromethorphan-guaifenesin 10-100 mg/5 mL Liquid
10 ml PO Q4H PRN (Reason: cough)
folic acid 400 mcg Tablet
0.4 mg PO MOWEFR
acetaminophen [Tylenol Extra Strength] 500 mg Tablet
500 mg PO BIDPRN PRN (Reason: mild pain)
famotidine [Pepcid] 20 mg Tablet
20 mg PO HS
ascorbic acid (vitamin C) [Vitamin C] 500 mg Tablet
500 mg PO DAILY
losartan 25 mg Tablet
25 mg PO HS
magnesium 250 mg Tablet
250 mg PO DAILY
gabapentin 100 mg Capsule
100 mg PO HS
fluticasone propionate 50 mcg/actuation [place],Suspension
2 spray INTRANASAL DAILY
levothyroxine 112 mcg Tablet
112 mcg PO DAILY AT 0700
rosuvastatin 20 mg Tablet
40 mg PO HS
Align (B.infantis) 4 mg Capsule
4 mg PO DAILY
dexlansoprazole 60 mg Capsule,Biphase Delayed Releas
60 mg PO DAILY
cholecalciferol (vitamin D3) 125 mcg (5,000 unit) Tablet
125 mcg PO DAILY
estradiol [Yuvafem] 10 mcg Tablet
10 mcg VAGINAL MOWEFR
albuterol sulfate 0.63 mg/3 mL Solution For Nebulization
0.63 mg INHALATION R Q3
methocarbamol 750 mg Tablet
750 mg PO DAILYPRN PRN (Reason: muscle pain)
pseudoephedrine HCl [Sudafed] 30 mg Tablet
30 mg PO TIDPRN PRN (Reason: sinus congestion)
budesonide-formoterol [Breyna] 160-4.5 mcg/actuation HFA aerosol inhaler
2 puff inhalation BID Qty: 10.2 0RF
benzonatate 100 mg capsule
100 mg PO Q4H PRN (Reason: Cough) Qty: 14 0RF
d-mannose 500 mg Capsule
2,000 mg PO DAILY
Utiva Cranberry
1 tab PO DAILY
albuterol sulfate 90 mcg/actuation Hfa Aerosol Inhaler
2 puff INHALATION QID PRN (Reason: shortness of breath)
Discharge Orders:
Discharge Patient (As Directed); Ordered 09/06/25
Ordered By: Clifford Abraham
Discharge Date and Time
Discharge Date/Time: 09/06/25 18:35
Print Language: MONTSERRATIAN
[2025-09-06] MEDS: SYMBICORT 160/4.5 MCG INHALER INH (17:33)
== END 2025-09-06 18:35 | disposition home or self-care (01) ==
LOC: 2 NORTH 01:09
PROVIDERS: Emergency Medicine; Nurse Practitioner Gerontology; ADMITTING PHYSICIAN Internal Medicine; ATTENDING PHYSICIAN Hospitalist; CONSULT PHYSICIAN Internal Medicine Gastroenterology; EMERGENCY PHYSICIAN Emergency Medicine; FAMILY PHYSICIAN Registered Nurse
DX: K91.89 Other postprocedural complications and disorders of digestive system (principal); Y84.8 Other medical procedures as the cause of abnormal reaction of the patient, or of later complication, without mention of misadventure at the time of the procedure; Y73.0 Diagnostic and monitoring gastroenterology and urology devices associated with adverse incidents; D62 Acute posthemorrhagic anemia; E03.9 Hypothyroidism, unspecified; E11.42 Type 2 diabetes mellitus with diabetic polyneuropathy; G47.33 Obstructive sleep apnea (adult) (pediatric); I10 Essential (primary) hypertension; J45.909 Unspecified asthma, uncomplicated; K21.9 Gastro-esophageal reflux disease without esophagitis; K57.30 Diverticulosis of large intestine without perforation or abscess without bleeding; K64.9 Unspecified hemorrhoids; E78.5 Hyperlipidemia, unspecified
CPT/HCPCS: 74177; 80048; 80053; 82962; 83690; 85014; 85018; 85025; 85027; 86803; 94640; 96360; 96361; 99284; G0378; Q9967